=== PATIENT | male | born 1945 | race Caucasian/White ===

== ENCOUNTER → 2017-01-24 | Outpatient (CLI) | payer OTHER ==
[~2017-01-24] MED LIST: FIORINAL W/CODE1 CA1 PO; FLEXERIL PO; GLUCOPHAGE500 MG PO; HYDROCHLOROTHIA25 MG PO; KROGER PHARMACY; LORTAB 7.5-5001 TAB PO; METOPROLOL TAR25 MG PO; ZESTRIL10 MG PO
--- NOTE | ~2017-01-24 | US77 ---
[facility] A Service [facility] RADIOLOGY TEXT RESULTS PATIENT: SUE DAVIS LOCATION: [facility] : 47 UNIT #: [id number] AGE: [address]: Francisco Levy MD SEX: M ORDER DR: [id number] [place] [id number] O MR#: [id number] Acc #: [id number] NAME: SUE DAVIS : 1945 SEX: M STUDY DATE/TIME: 01/24/2017 12:34 UNIT: SGUS ROOM: STUDY DESCRIPTION: US Kidney Bilateral Complete Attending Physician: Francisco Levy M.D. Referring Physician: Francisco Levy M.D. Ordering Physician: Francisco Levy M.D. Primary Care Physician: Ciera Mendoza M.D. MEDICAL IMAGING REPORT This report is preliminary unless electronic signature is present. EXAM Renal ultrasound INDICATIONS Renal insufficiency. Left flank pain for the past 2 weeks. PROCEDURE Crowley-scale and Doppler imaging of the kidneys and bladder. COMPARISON None. FINDINGS Right kidney measures 9.3 cm. Left kidney measures 10 cm. No hydronephrosis. Bilateral perinephric fluid. Unremarkable bladder. Both kidneys maintain normal echotexture and cortical thickness. IMPRESSION 1. No hydronephrosis. 2. Bilateral perinephric fluid. Dictated by... Daniel Blanco M.D. THIS IS AN ELECTRONICALLY VERIFIED REPORT Daniel Blanco M.D. at 01/25/2017 10:06 AM SEKOU/megan TD: 01/24/2017 18:43 JOB #: [id number] MEDICAL IMAGING REPORT [facility] A Service [facility] RADIOLOGY TEXT RESULTS PATIENT: SUE DAVIS LOCATION: [facility] : 47 UNIT #: [id number] AGE: [address]: Francisco Levy MD SEX: M ORDER DR: Page 1 of 1
== END | disposition home or self-care (01) ==
LOC: SGUS 08:00
DX: N18.9 Chronic kidney disease, unspecified (principal)
CPT/HCPCS: 76775